=== PATIENT | female | born 1995 | race Two or more races ===

== ENCOUNTER 2017-05-01 17:48 | Emergency (ER) | payer MEDICAID ==
[~2017-05-01] VITALS: Ht 162.6 cm; Wt 75.0 kg
[~2017-05-01 17:48] MED LIST: ALBU1.25 NEB
[2017-05-01] MEDS ORDERED: ONDANSETRON 2MG/ML, 2ML IVPush ONE (18:30)
[2017-05-01] MEDS ORDERED: SODIUM CHLORIDE FLUSH 10ML SYR IVF ONE (18:30)
[2017-05-01] MEDS ORDERED: SODIUM CHLORIDE 0.9% 1,000ML IVBOLUS ONE (18:30)
[2017-05-01 18:55] LABS: HEMATOCRIT 42.3 % (34.6-47.8); HEMOGLOBIN 14.6 g/dL (11.7-16.4); WHITE BLOOD COUNT 8.7 x10^3/uL (4.5-13.2)
[2017-05-01] MEDS ORDERED: PLEASE ENTER ALLERGIES MC SCH ×2 (19:00)
[2017-05-01] MEDS ORDERED: PLEASE ENTER HEIGHT AND WEIGHT MC SCH (19:00)
[2017-05-01 19:04] LABS: ASPARTATE AMINO TRANSFERASE 17 U/L (15-37); BLOOD UREA NITROGEN 7 mg/dL (7-18)
[2017-05-01] MEDS ORDERED: ONDANSETRON 2MG/ML, 2ML ONE (19:08)
[2017-05-01 19:45] VITALS: BP 116/78
== END 2017-05-01 20:58 | disposition home or self-care (01) ==
LOC: ED 20:40
DX: O26.891 Other specified pregnancy related conditions, first trimester (principal); Z3A.01 Less than 8 weeks gestation of pregnancy; R10.84 Generalized abdominal pain; O99.281 Endocrine, nutritional and metabolic diseases complicating pregnancy, first trimester; E86.0 Dehydration
CPT/HCPCS: 36415; 76801; 80053; 81003; 83690; 84702; 85025; 96361; 96374; 99285; J2405; J7030

== ENCOUNTER 2017-06-09 16:29 | Emergency (ER) | payer MEDICAID ==
[~2017-06-09] VITALS: Ht 162.6 cm; Wt 73.5 kg
[2017-06-09] MEDS ORDERED: SODIUM CHLORIDE 0.9% 1,000ML IVBOLUS ONE (17:00)
[2017-06-09] MEDS ORDERED: ONDANSETRON 2MG/ML, 2ML IVPush ONE (17:00)
[2017-06-09] MEDS ORDERED: SODIUM CHLORIDE FLUSH 10ML SYR IVF ONE (17:00)
[2017-06-09 17:06] LABS: HEMATOCRIT 40.3 % (34.6-47.8); HEMOGLOBIN 13.9 g/dL (11.7-16.4); WHITE BLOOD COUNT 9.1 x10^3/uL (4.5-13.2)
[2017-06-09 17:17] LABS: BLOOD UREA NITROGEN 5 mg/dL (7-18)
[2017-06-09 17:18] LABS: ASPARTATE AMINO TRANSFERASE 12 U/L (15-37)
[2017-06-09] MEDS ORDERED: PREN1TAB84 PO (17:35)
[2017-06-09] MEDS ORDERED: ALBU90AE INH (17:35)
[2017-06-09] MEDS ORDERED: ONDANSETRON ODT 4 MG ONE (17:53)
[2017-06-09 17:58] VITALS: BP 99/57
[2017-06-09] MEDS ORDERED: ONDANSETRON ODT 4 MG PO ONE (18:00)
== END 2017-06-09 18:29 | disposition home or self-care (01) ==
LOC: ED 16:53
DX: O26.891 Other specified pregnancy related conditions, first trimester (principal); Z3A.11 11 weeks gestation of pregnancy; J45.909 Unspecified asthma, uncomplicated
CPT/HCPCS: 36415; 76801; 80053; 84702; 85025; 99285; Q0162